=== PATIENT | male | born 1985 | race Caucasian/White ===

== ENCOUNTER 2023-06-20 13:03 | Emergency (ER) | payer BC ==
[2023-06-20 13:07] VITALS: BP 148/84; PULSE 107; RESP 23; TEMP 99; BMI 29.5
[2023-06-20] MEDS ORDERED: IBUPROFEN 400 MG TABLET (FP) PO ONE ×2 (14:15→14:20)
[2023-06-20 14:36] LABS: URINE APPEARANCE CLEAR; URINE BILIRUBIN NEGATIVE (NEGATIVE); URINE COLOR YELLOW; URINE GLUCOSE (UA) NEGATIVE (NEGATIVE); URINE KETONE NEGATIVE (NEGATIVE); URINE LEUK ESTERASE NEGATIVE (NEGATIVE); URINE NITRITE NEGATIVE (NEGATIVE); URINE PROTEIN NEGATIVE (NEGATIVE); URINE UROBILINOGEN 0.2 mg/dL (0.2-1.0)
== END 2023-06-20 15:26 | disposition home or self-care (01) ==
LOC: JERFT 13:03
DX: J02.0 Streptococcal pharyngitis (principal); M79.10 Myalgia, unspecified site; M54.9 Dorsalgia, unspecified; R05.9 Cough, unspecified; Z20.822 Contact with and (suspected) exposure to COVID-19
CPT/HCPCS: 0241U-QW; 81003; 87086; 87651; 99283-25